=== PATIENT | male | born 1985 | race Two or more races ===

== ENCOUNTER 2021-11-26 11:54 | Emergency (ER) | payer MEDICAID ==
[2021-11-26] MEDS ORDERED: Sodium Chloride 0.9% 1,000 ML IV ONE (14:10)
[2021-11-26] MEDS ORDERED: Ondansetron 4 MG/2 ML SDV IVPUSH ONE (14:10)
[2021-11-26] MEDS ORDERED: Ketorolac 30 MG/ML SDV IVPUSH ONE (14:10)
[2021-11-26] MEDS ORDERED: HYDROmorphone 1 MG/ML Syringe IVPUSH ONE (14:11)
[2021-11-26 15:30] LABS: CARBON DIOXIDE,CO2 24.4 mmol/L (21.0-32.0); POTASSIUM,K 4.3 mmol/L (3.5-5.1)
[2021-11-26] MEDS ORDERED: Iopamidol 755 MG/ML 500 ML Multipack Bottle IVPUSH STA (15:43)
[2021-11-26 16:38] LABS: CORONAVIRUS COVID-19 NAA NEGATIVE (NEGATIVE); INFLUENZA A NAA NEGATIVE (NEGATIVE); INFLUENZA B NAA NEGATIVE (NEGATIVE)
[2021-11-26] MEDS ORDERED: Alum Hydro/Mag Hydro/Simeth XS 15 ML, Metoclopramide 5 MG, Lidocaine 2% 5 ML PO ONE ×3 (17:34)
[2021-11-26] MEDS ORDERED: Famotidine 20 MG Tab PO ONE (17:35)
== END 2021-11-26 17:45 | disposition home or self-care (01) ==
LOC: MW.ED 11:54
DX: K81.9 Cholecystitis, unspecified (principal); Z86.16 Personal history of COVID-19; Z20.822 Contact with and (suspected) exposure to COVID-19
CPT/HCPCS: 0240U; 36415; 74177; 80053; 81003; 83690; 85025; 96361; 96374; 96375; 99284; A9270; J1170; J1885; J2405; J7030; Q9967

== ENCOUNTER 2021-12-26 04:55 | Emergency (ER) | payer MEDICAID ==
[2021-12-26] MEDS ORDERED: Alum Hydro/Mag Hydro/Simeth XS 15 ML, Lidocaine 2% 5 ML PO ONE ×2 (05:06)
[2021-12-26 05:32] LABS: CARBON DIOXIDE,CO2 28.8 mmol/L (21.0-32.0); POTASSIUM,K 3.9 mmol/L (3.5-5.1)
[2021-12-26] MEDS ORDERED: Ketorolac 30 MG/ML SDV IVPUSH ONE (05:54)
== END 2021-12-26 06:48 | disposition home or self-care (01) ==
LOC: MW.ED 04:55
DX: R10.11 Right upper quadrant pain (principal); Z79.899 Other long term (current) drug therapy; Z86.16 Personal history of COVID-19; Z90.49 Acquired absence of other specified parts of digestive tract
CPT/HCPCS: 36415; 80053; 83690; 85025; 96374; 99284; A9270; J1885

== ENCOUNTER 2021-12-26 10:04 | Emergency (ER) | payer MEDICAID ==
[2021-12-26] MEDS ORDERED: Ondansetron 4 MG Tab.DIS PO ONE (10:22)
[2021-12-26] MEDS ORDERED: Acetaminophen/HYDROcodone 325-5 MG Tab PO ONE (10:23)
== END 2021-12-26 11:01 | disposition home or self-care (01) ==
LOC: MW.ED 10:04
DX: R10.11 Right upper quadrant pain (principal); Z79.899 Other long term (current) drug therapy; Z86.16 Personal history of COVID-19; Z90.49 Acquired absence of other specified parts of digestive tract
CPT/HCPCS: 99283; A9270

== ENCOUNTER 2023-04-21 13:01 | Emergency (ER) | payer OTHER, BC ==
[2023-04-21] MEDS ORDERED: Ketorolac 30 MG/ML SDV IM ONE (15:30)
== END 2023-04-21 17:31 | disposition home or self-care (01) ==
LOC: MW.ED 13:01
DX: M54.50 Low back pain, unspecified (principal); K21.9 Gastro-esophageal reflux disease without esophagitis; Z86.16 Personal history of COVID-19; Z79.899 Other long term (current) drug therapy
CPT/HCPCS: 72128; 72131; 96372; 99284; J1885